=== PATIENT | male | born 2000 | race Caucasian/White ===

== ENCOUNTER 2019-10-01 09:55 | Emergency (ER) | payer SELFPAY ==
[~2019-10-01] VITALS: Ht 193 cm; Wt 81.6 kg
[2019-10-01] MEDS ORDERED: IBUPROFEN600 MG PO (12:12)
[2019-10-01] MEDS ORDERED: TESSALON PERLE100 M1 PO (12:12)
[2019-10-01] MEDS ORDERED: OMNICEF300 MG PO (12:12)
== END 2019-10-01 12:13 | disposition home or self-care (01) ==
LOC: ED 09:55
DX: H66.91 Otitis media, unspecified, right ear (principal); J40 Bronchitis, not specified as acute or chronic; Z87.891 Personal history of nicotine dependence

== ENCOUNTER → 2021-04-29 | Outpatient (CLI) | payer OTHER ==
[~2021-04-29] MED LIST: IBUPROFEN600 MG PO; OMNICEF300 MG PO; TESSALON PERLE100 M1 PO
== END | disposition home or self-care (01) ==
LOC: COVID19 15:12
PROVIDERS: ATTEND Internal Medicine
DX: Z11.52 Encounter for screening for COVID-19 (principal)